=== PATIENT | female | born 1975 | race Caucasian/White ===

== ENCOUNTER 2018-03-04 14:11 | Outpatient (CLI) | payer OTHER | END 2018-03-04 14:14 | disposition home or self-care (01) | LOC: SONOGRAMA 14:11 | DX: N60.11 Diffuse cystic mastopathy of right breast (principal); N60.12 Diffuse cystic mastopathy of left breast ==

== ENCOUNTER 2020-09-20 14:36 | Outpatient (CLI) | payer OTHER | END 2020-09-20 15:05 | disposition home or self-care (01) | LOC: SONOGRAMA 14:36 | PROVIDERS: ATTEND Surgery | DX: N60.11 Diffuse cystic mastopathy of right breast (principal); N60.12 Diffuse cystic mastopathy of left breast ==

== ENCOUNTER 2021-06-02 14:05 | Outpatient (CLI) | payer OTHER | END 2021-06-02 14:16 | disposition home or self-care (01) | LOC: SONOGRAMA 14:05 | PROVIDERS: ATTEND Surgery | DX: N60.11 Diffuse cystic mastopathy of right breast (principal); N60.12 Diffuse cystic mastopathy of left breast ==

== ENCOUNTER 2024-07-14 12:32 | Outpatient (CLI) | payer OTHER | END 2024-07-14 12:34 | disposition home or self-care (01) | LOC: SONOGRAMA 12:32 | PROVIDERS: ATTEND Surgery | DX: D24.2 Benign neoplasm of left breast (principal); N60.11 Diffuse cystic mastopathy of right breast; N60.12 Diffuse cystic mastopathy of left breast ==